=== PATIENT | male | born 1960 | race Caucasian/White ===

== ENCOUNTER → 2017-04-08 | Outpatient (CLI) | payer OTHER ==
[~2017-04-08] MED LIST: ATORVASTATIN CA40 MG PO; COREG6.25 MG PO; CYMBALTA30 MG PO; FISH OIL 1,001000 M2 PO; LANTUS SOL100 UNIT/1 SUBQ; LOSARTAN POTAS100 MG PO; METOLAZONE 2.52.5 M1 PO; PROCRIT 1010000 U/M1 IJ; SLOW RELEASE I142 M1 PO; SODIUM BICARBO650 M3 PO; TORSEMIDE20 MG PO; TUMS PO; VELTASSA8.4 GM PO; VITAMIN D 5050000 I1 PO; VITAMIN E400 UNIT PO
[2017-04-08 13:13] VITALS: BP 108/64; BP 110/60
[2017-04-08 15:36] VITALS: BP 110/60; BP 118/60; BP 148/70
== END ==
LOC: OPONC 10:41
DX: N18.9 Chronic kidney disease, unspecified (principal); D63.1 Anemia in chronic kidney disease
CPT/HCPCS: 91030

== ENCOUNTER → 2017-08-26 | Outpatient (CLI) | payer OTHER ==
[~2017-08-26] MED LIST changes: +ARANESP60 MCG/1 M SUBQ; +ASPIRIN EC81 M1 PO; +FEROSUL220 MG/5 M; +LASIX 80 MG TAB80 MG PO; +TRAZODONE HCL100 MG PO
[2017-08-26 13:54] VITALS: BP 119/48; BP 122/50
[2017-08-26 15:49] VITALS: BP 118/59; BP 119/48; BP 132/57
== END ==
LOC: OPONC 12:08
DX: N18.9 Chronic kidney disease, unspecified (principal); D63.1 Anemia in chronic kidney disease
CPT/HCPCS: 91030

== ENCOUNTER → 2018-05-05 | Outpatient (CLI) | payer OTHER ==
[~2018-05-05] MED LIST changes: +RENVELA800 MG PO
[2018-05-05 12:59] VITALS: BP 106/55; BP 124/58
[2018-05-05 15:01] VITALS: BP 124/58; BP 141/62; BP 149/69
== END ==
LOC: OPONC 10:30
DX: D64.9 Anemia, unspecified (principal)
CPT/HCPCS: 91030

== ENCOUNTER → 2019-03-16 | Outpatient (CLI) | payer OTHER ==
[~2019-03-16] MED LIST changes: +BASAGLAR K100 UNIT/1 SUBQ; +MIRCERA100 MCG/0. SUBQ
[2019-03-16 10:31] VITALS: BP 112/54; BP 113/44
[2019-03-16 13:38] VITALS: BP 112/54; BP 117/53; BP 117/55
--- NOTE | 2019-03-16 15:40 | NUR ---
HERE FOR BLOOD TRANSFUSION, 2 UNITS FOR HGB 7.8, RECENT DROP FROM AROUND 11 PER PT. STATES HAS HAD SOME BLACK STOOLS AND IS BEING CHECKED FOR BLOOD IN STOOL. PT SYMPTOMATIC WITH DIZZINESS, VISION CHANGES, WEAKNESS, FATIGUE. RECEIVED BLOOD ONE YEAR AGO WITH NO UNTOWARD EFFECT. TODAY'S TRANSFUSION TOLERATED WELL, NO S/S REACTION. COLOR MORE PINK. PT DENIES ANY COMPLAINTS. DISMISSED POST TRANSFUSION TO THE DIALYSIS CLINIC THIS AFTERNOON. STABLE CONDITION.
== END ==
LOC: OPONC 07:26
DX: N18.9 Chronic kidney disease, unspecified (principal); D63.1 Anemia in chronic kidney disease
CPT/HCPCS: 91030

== ENCOUNTER → 2020-12-03 | Outpatient (CLI) | payer BC, OTHER ==
[~2020-12-03] MED LIST changes: +ACETAMINOPHEN325 M1 PO; +ALPHA LIPOIC A100 MG PO; +ASA81BEC PO; +BACTRIM DS TAB1 EAC1 PO; +CALCIUM CITRAT250 MG PO; +DESYREL150 MG PO; +FLOMAX0.4 MG PO; +FLONASE 0.05%50 MCG NARES; +GABAPENTIN100 MG PO; +HYDROXYZINE HCL25 M2 PO; +METOPROLOL SUCC25 M1 PO; +MUCINEX600 MG PO; +MYFORTIC180 MG PO; +NOVOLOG100 UNIT/1 SUBQ; +OMEGA-3 FISH1200 MG PO; +OXYCODONE HCL 55 MG PO; +PLAVIX 75 MG TA75 MG PO; +PROTONIX40 M2 PO; +SLOW FE142 MG PO; +TACROLIMUS1 MG PO; +TRESIBA100 UNIT/1 SUBQ; +VITAMIN C500 M2 PO; +VITAMIN D3125 MC3 PO; +XARELTO10 MG PO; +ZOFRAN4 MG PO
== END ==
LOC: HYPER 10:14
PROVIDERS: ATTEND Emergency Medicine
DX: E11.621 Type 2 diabetes mellitus with foot ulcer (principal); L89.623 Pressure ulcer of left heel, stage 3; L97.421 Non-pressure chronic ulcer of left heel and midfoot limited to breakdown of skin; E66.01 Morbid (severe) obesity due to excess calories; E11.40 Type 2 diabetes mellitus with diabetic neuropathy, unspecified; E11.22 Type 2 diabetes mellitus with diabetic chronic kidney disease; I12.0 Hypertensive chronic kidney disease with stage 5 chronic kidney disease or end stage renal disease; N18.6 End stage renal disease; I48.91 Unspecified atrial fibrillation; E78.5 Hyperlipidemia, unspecified; G47.30 Sleep apnea, unspecified; G89.29 Other chronic pain; F41.9 Anxiety disorder, unspecified; Z79.4 Long term (current) use of insulin; Z79.82 Long term (current) use of aspirin; Z68.38 Body mass index [BMI] 38.0-38.9, adult

== ENCOUNTER → 2020-12-03 | Outpatient (CLI) | payer BC, OTHER ==
[~2020-12-03] MED LIST changes: -ACETAMINOPHEN325 M1 PO; -ALPHA LIPOIC A100 MG PO; -ASA81BEC PO; -BACTRIM DS TAB1 EAC1 PO; -CALCIUM CITRAT250 MG PO; -DESYREL150 MG PO; -FLOMAX0.4 MG PO; -FLONASE 0.05%50 MCG NARES; -GABAPENTIN100 MG PO; -HYDROXYZINE HCL25 M2 PO; -METOPROLOL SUCC25 M1 PO; -MUCINEX600 MG PO; -MYFORTIC180 MG PO; -NOVOLOG100 UNIT/1 SUBQ; -OMEGA-3 FISH1200 MG PO; -OXYCODONE HCL 55 MG PO; -PLAVIX 75 MG TA75 MG PO; -PROTONIX40 M2 PO; -SLOW FE142 MG PO; -TACROLIMUS1 MG PO; -TRESIBA100 UNIT/1 SUBQ; -VITAMIN C500 M2 PO; -VITAMIN D3125 MC3 PO; -XARELTO10 MG PO; -ZOFRAN4 MG PO
== END ==
LOC: SJCVCIMAG 11:51
PROVIDERS: ATTEND Emergency Medicine
DX: I70.202 Unspecified atherosclerosis of native arteries of extremities, left leg (principal); M79.662 Pain in left lower leg

== ENCOUNTER → 2020-12-08 | Outpatient (CLI) | payer BC, OTHER ==
[~2020-12-08] VITALS: Ht 182.9 cm; Wt 127.2 kg
[~2020-12-08] MED LIST changes: +ACETAMINOPHEN325 M1 PO; +ALPHA LIPOIC A100 MG PO; +ASA81BEC PO; +BACTRIM DS TAB1 EAC1 PO; +CALCIUM CITRAT250 MG PO; +DESYREL150 MG PO; +FLOMAX0.4 MG PO; +FLONASE 0.05%50 MCG NARES; +GABAPENTIN100 MG PO; +HYDROXYZINE HCL25 M2 PO; +METOPROLOL SUCC25 M1 PO; +MUCINEX600 MG PO; +MYFORTIC180 MG PO; +NOVOLOG100 UNIT/1 SUBQ; +OMEGA-3 FISH1200 MG PO; +OXYCODONE HCL 55 MG PO; +PLAVIX 75 MG TA75 MG PO; +PROTONIX40 M2 PO; +SLOW FE142 MG PO; +TACROLIMUS1 MG PO; +TRESIBA100 UNIT/1 SUBQ; +VITAMIN C500 M2 PO; +VITAMIN D3125 MC3 PO; +XARELTO10 MG PO; +ZOFRAN4 MG PO
[2020-12-08 08:43] VITALS: BP 123/78
[2020-12-08 09:07] LABS: HEMATOCRIT 33.2 % (42.0-52.0); HEMOGLOBIN 10.5 gm/dL (14.0-18.0); MCH 27.3 pg (26.0-34.0); MCHC 31.7 g/dL (28.0-37.0); MCV 86.3 fL (80.0-100.0); RBC 3.84 mil/uL (4.50-6.00); RDW 18.6 % (10.5-14.5); WBC 4.9 thou/uL (4.0-11.0)
[2020-12-08 11:46] LABS: CALCIUM 9.3 mg/dL (8.5-10.1); POTASSIUM 5.8 mmol/L (3.5-5.1)
== END | disposition home or self-care (01) ==
LOC: CATH 07:42
PROVIDERS: ATTEND Nuclear Medicine Nuclear Cardiology
DX: I70.244 Atherosclerosis of native arteries of left leg with ulceration of heel and midfoot (principal); L97.429 Non-pressure chronic ulcer of left heel and midfoot with unspecified severity; I70.1 Atherosclerosis of renal artery; I12.9 Hypertensive chronic kidney disease with stage 1 through stage 4 chronic kidney disease, or unspecified chronic kidney disease; E11.22 Type 2 diabetes mellitus with diabetic chronic kidney disease; N18.9 Chronic kidney disease, unspecified; G47.30 Sleep apnea, unspecified; E66.9 Obesity, unspecified; Z98.890 Other specified postprocedural states; Z79.899 Other long term (current) drug therapy; Z79.4 Long term (current) use of insulin; Z94.0 Kidney transplant status; Z99.2 Dependence on renal dialysis

== ENCOUNTER → 2020-12-11 | Outpatient (CLI) | payer BC, OTHER | LOC: HYPER 09:55 | PROVIDERS: ATTEND Emergency Medicine | DX: E11.621 Type 2 diabetes mellitus with foot ulcer (principal); L89.623 Pressure ulcer of left heel, stage 3; L97.421 Non-pressure chronic ulcer of left heel and midfoot limited to breakdown of skin; E11.40 Type 2 diabetes mellitus with diabetic neuropathy, unspecified; E11.22 Type 2 diabetes mellitus with diabetic chronic kidney disease; N18.6 End stage renal disease; I48.91 Unspecified atrial fibrillation; E78.5 Hyperlipidemia, unspecified; G89.29 Other chronic pain; M54.5 Low back pain; E66.01 Morbid (severe) obesity due to excess calories; G47.30 Sleep apnea, unspecified; F41.9 Anxiety disorder, unspecified; Z68.38 Body mass index [BMI] 38.0-38.9, adult; Z79.4 Long term (current) use of insulin; Z79.82 Long term (current) use of aspirin; Z79.899 Other long term (current) drug therapy ==

== ENCOUNTER → 2020-12-25 | Outpatient (CLI) | payer BC, OTHER | LOC: HYPER 10:41 | PROVIDERS: ATTEND Emergency Medicine | DX: E11.621 Type 2 diabetes mellitus with foot ulcer (principal); L89.623 Pressure ulcer of left heel, stage 3; L97.421 Non-pressure chronic ulcer of left heel and midfoot limited to breakdown of skin; L89.613 Pressure ulcer of right heel, stage 3; L97.411 Non-pressure chronic ulcer of right heel and midfoot limited to breakdown of skin; E11.40 Type 2 diabetes mellitus with diabetic neuropathy, unspecified; E11.22 Type 2 diabetes mellitus with diabetic chronic kidney disease; I12.0 Hypertensive chronic kidney disease with stage 5 chronic kidney disease or end stage renal disease; N18.6 End stage renal disease; I48.91 Unspecified atrial fibrillation; E78.5 Hyperlipidemia, unspecified; G89.29 Other chronic pain; M54.5 Low back pain; E66.01 Morbid (severe) obesity due to excess calories; G47.30 Sleep apnea, unspecified; F41.9 Anxiety disorder, unspecified; Z68.38 Body mass index [BMI] 38.0-38.9, adult ==

== ENCOUNTER → 2020-12-31 | Outpatient (CLI) | payer OTHER, BC ==
[~2020-12-31] VITALS: Ht 182.9 cm; Wt 127.0 kg
[2020-12-31 08:54] LABS: HEMATOCRIT 31.9 % (42.0-52.0); HEMOGLOBIN 10.2 gm/dL (14.0-18.0); MCH 26.8 pg (26.0-34.0); MCHC 31.9 g/dL (28.0-37.0); MCV 84.2 fL (80.0-100.0); RBC 3.78 mil/uL (4.50-6.00); RDW 17.5 % (10.5-14.5); WBC 7.6 thou/uL (4.0-11.0)
[2020-12-31 08:55] VITALS: BP 119/59
[2020-12-31 09:01] LABS: CALCIUM 9.2 mg/dL (8.5-10.1); CREATININE 1.9 mg/dL (0.7-1.3)
[2020-12-31 09:23] LABS: INR 1.07; PROTIME 11.6 Seconds (9.3-11.4)
== END | disposition home or self-care (01) ==
LOC: CATH 07:09
PROVIDERS: ATTEND Nuclear Medicine Nuclear Cardiology
DX: I70.211 Atherosclerosis of native arteries of extremities with intermittent claudication, right leg (principal); I70.238 Atherosclerosis of native arteries of right leg with ulceration of other part of lower leg; M79.604 Pain in right leg; I12.9 Hypertensive chronic kidney disease with stage 1 through stage 4 chronic kidney disease, or unspecified chronic kidney disease; E11.22 Type 2 diabetes mellitus with diabetic chronic kidney disease; N18.4 Chronic kidney disease, stage 4 (severe); D64.9 Anemia, unspecified; I48.91 Unspecified atrial fibrillation; K21.9 Gastro-esophageal reflux disease without esophagitis; Z98.890 Other specified postprocedural states; Z79.899 Other long term (current) drug therapy; Z79.01 Long term (current) use of anticoagulants; Z94.0 Kidney transplant status; Z79.4 Long term (current) use of insulin; Z88.0 Allergy status to penicillin

== ENCOUNTER → 2021-01-07 | Outpatient (CLI) | payer OTHER, BC | LOC: HYPER 14:34 | PROVIDERS: ATTEND Emergency Medicine | DX: E11.621 Type 2 diabetes mellitus with foot ulcer (principal); L89.623 Pressure ulcer of left heel, stage 3; L97.421 Non-pressure chronic ulcer of left heel and midfoot limited to breakdown of skin; L89.613 Pressure ulcer of right heel, stage 3; L97.411 Non-pressure chronic ulcer of right heel and midfoot limited to breakdown of skin; E11.40 Type 2 diabetes mellitus with diabetic neuropathy, unspecified; E11.22 Type 2 diabetes mellitus with diabetic chronic kidney disease; I12.0 Hypertensive chronic kidney disease with stage 5 chronic kidney disease or end stage renal disease; N18.6 End stage renal disease; I48.91 Unspecified atrial fibrillation; E78.5 Hyperlipidemia, unspecified; M54.5 Low back pain; G89.29 Other chronic pain; E66.9 Obesity, unspecified; G47.30 Sleep apnea, unspecified; F41.9 Anxiety disorder, unspecified; Z79.4 Long term (current) use of insulin; Z79.82 Long term (current) use of aspirin; Z79.899 Other long term (current) drug therapy; Z99.2 Dependence on renal dialysis ==

== ENCOUNTER → 2021-01-14 | Outpatient (CLI) | payer OTHER, BC | LOC: HYPER 13:22 | PROVIDERS: ATTEND Emergency Medicine | DX: E11.621 Type 2 diabetes mellitus with foot ulcer (principal); L89.623 Pressure ulcer of left heel, stage 3; L97.421 Non-pressure chronic ulcer of left heel and midfoot limited to breakdown of skin; L89.613 Pressure ulcer of right heel, stage 3; L97.411 Non-pressure chronic ulcer of right heel and midfoot limited to breakdown of skin; E11.40 Type 2 diabetes mellitus with diabetic neuropathy, unspecified; E11.22 Type 2 diabetes mellitus with diabetic chronic kidney disease; I12.0 Hypertensive chronic kidney disease with stage 5 chronic kidney disease or end stage renal disease; N18.6 End stage renal disease; I48.91 Unspecified atrial fibrillation; E78.5 Hyperlipidemia, unspecified; M54.5 Low back pain; G89.29 Other chronic pain; E66.01 Morbid (severe) obesity due to excess calories; G47.30 Sleep apnea, unspecified; F41.9 Anxiety disorder, unspecified; Z79.82 Long term (current) use of aspirin; Z79.899 Other long term (current) drug therapy; Z99.2 Dependence on renal dialysis ==

== ENCOUNTER → 2021-02-04 | Outpatient (CLI) | payer OTHER, BC | LOC: HYPER 10:12 | PROVIDERS: ATTEND Emergency Medicine | DX: E11.621 Type 2 diabetes mellitus with foot ulcer (principal); L89.623 Pressure ulcer of left heel, stage 3; L97.421 Non-pressure chronic ulcer of left heel and midfoot limited to breakdown of skin; L89.613 Pressure ulcer of right heel, stage 3; L97.411 Non-pressure chronic ulcer of right heel and midfoot limited to breakdown of skin; L84 Corns and callosities; E11.40 Type 2 diabetes mellitus with diabetic neuropathy, unspecified; E11.22 Type 2 diabetes mellitus with diabetic chronic kidney disease; I12.0 Hypertensive chronic kidney disease with stage 5 chronic kidney disease or end stage renal disease; N18.6 End stage renal disease; I48.91 Unspecified atrial fibrillation; E78.5 Hyperlipidemia, unspecified; M54.5 Low back pain; G89.29 Other chronic pain; E66.01 Morbid (severe) obesity due to excess calories; G47.30 Sleep apnea, unspecified; F41.9 Anxiety disorder, unspecified; Z79.82 Long term (current) use of aspirin; Z99.2 Dependence on renal dialysis; Z79.4 Long term (current) use of insulin; Z68.38 Body mass index [BMI] 38.0-38.9, adult ==

== ENCOUNTER → 2021-02-18 | Outpatient (CLI) | payer OTHER, BC | LOC: HYPER 16:15 | PROVIDERS: ATTEND Emergency Medicine | DX: E11.621 Type 2 diabetes mellitus with foot ulcer (principal); L89.623 Pressure ulcer of left heel, stage 3; L97.421 Non-pressure chronic ulcer of left heel and midfoot limited to breakdown of skin; L89.613 Pressure ulcer of right heel, stage 3; L97.412 Non-pressure chronic ulcer of right heel and midfoot with fat layer exposed; L84 Corns and callosities; E11.40 Type 2 diabetes mellitus with diabetic neuropathy, unspecified; E11.22 Type 2 diabetes mellitus with diabetic chronic kidney disease; I12.0 Hypertensive chronic kidney disease with stage 5 chronic kidney disease or end stage renal disease; N18.6 End stage renal disease; I48.91 Unspecified atrial fibrillation; E78.5 Hyperlipidemia, unspecified; M54.5 Low back pain; G89.29 Other chronic pain; E66.01 Morbid (severe) obesity due to excess calories; G47.30 Sleep apnea, unspecified; F41.9 Anxiety disorder, unspecified; Z79.82 Long term (current) use of aspirin; Z99.2 Dependence on renal dialysis; Z79.4 Long term (current) use of insulin; Z68.38 Body mass index [BMI] 38.0-38.9, adult ==

== ENCOUNTER → 2021-03-04 | Outpatient (CLI) | payer OTHER, BC ==
[~2021-03-04] MED LIST changes: +TACROLIMUS5 MG PO
== END ==
LOC: HYPER 08:27
PROVIDERS: ATTEND Emergency Medicine
DX: E11.621 Type 2 diabetes mellitus with foot ulcer (principal); L89.623 Pressure ulcer of left heel, stage 3; L97.421 Non-pressure chronic ulcer of left heel and midfoot limited to breakdown of skin; L89.613 Pressure ulcer of right heel, stage 3; L97.412 Non-pressure chronic ulcer of right heel and midfoot with fat layer exposed; L84 Corns and callosities; E11.40 Type 2 diabetes mellitus with diabetic neuropathy, unspecified; E11.22 Type 2 diabetes mellitus with diabetic chronic kidney disease; I12.0 Hypertensive chronic kidney disease with stage 5 chronic kidney disease or end stage renal disease; N18.6 End stage renal disease; I48.91 Unspecified atrial fibrillation; E78.5 Hyperlipidemia, unspecified; M54.5 Low back pain; G89.29 Other chronic pain; E66.01 Morbid (severe) obesity due to excess calories; G47.30 Sleep apnea, unspecified; F41.9 Anxiety disorder, unspecified; Z79.82 Long term (current) use of aspirin; Z99.2 Dependence on renal dialysis; Z79.4 Long term (current) use of insulin; Z68.38 Body mass index [BMI] 38.0-38.9, adult

== ENCOUNTER 2021-03-10 18:28 | Inpatient (IN) | payer OTHER, BC ==
[~2021-03-10] VITALS: Ht 182.9 cm; Wt 122.0 kg
--- NOTE | ~2021-03-10 | O ---
[facility] [place] [address] OPERATIVE REPORT Name: MUSTAPHA FERRER Room #: 442-P ADM IN M.R.#: [id number] Admission: 03/10/21 Attend Phys: Sudhir Maria MD Discharge: Date of : 56 Report #: [id number] THIS REPORT FOR: cc: Jad Stock DPM, David B. DPM Rizzi, Raymond M. DPM ~ DOC #: [id number] Obed Carmen MD DATE OF SERVICE: 03/12/2021 PREOPERATIVE DIAGNOSIS: Right diabetic foot ulcer, Collins grade III approximately 6 cm in diameter. POSTOPERATIVE DIAGNOSIS: Right diabetic foot ulcer, Collins grade III approximately 6 cm in diameter. PROCEDURE: Debridement of right heel excisional with deep fascia and tendon debrided approximately 12 cm x 7 cm, excisional with rongeur. ANESTHESIA: General with a local block consisting of 10 mL of 0.5% Marcaine plain. TOURNIQUET: None. DESCRIPTION OF PROCEDURE: The patient was placed on the operative table in supine position. The right lower extremity was prepped and draped in the usual sterile manner. Attention was directed to the right heel wound, which was posterior medial and somewhat plantar. This area was debrided with a rongeur at first. It was noted that the wound actually tracks more distally then posteriorly and superiorly. The wound tracks distally approximately 6-7 cm to the medial aspect of the foot and distally. I made an incision to lengthen this area up, so I can see this area better. This incision was approximately 4-5 cm in length and I deepened it to follow the tunnel that went in the distal medial aspect of the foot and used a rongeur and scissors to debride out any necrotic tissue. There was increased smell and increased signs of infection site with necrotic tissue present. I took the deep tissue and sent for aerobic, anaerobic, fungal. Wound was flushed out with normal saline, bacitracin mix and all wound margins were also trimmed up nicely to good bleeding tissue. There was no significant bleeding, but there was a lot of oozing of blood. Leakage of bleeding might be adequate for healing, but it will not be a great healing process. At the end, the wound was approximately 12 cm in length and about 6-[address] [address] OPERATIVE REPORT Name: MUSTAPHA FERRER Room #: 442-P [facility] IN .R.#: [id number] Admission: 03/10/21 Attend Phys: Sudhir Maria MD Discharge: Date of : 56 Report #: [id number] diameter and approximately 4-5 cm in depth. It was then dressed with fluffs, Kerlix and Lazaro bandage. The patient tolerated the procedure well and left the operating room with stable vital signs and vascular intact. The patient will follow up with Dr. Watson followup discharge and also Dr. Watson performed in the hospital and plan to get a wound VAC tomorrow. MD PAIGE Rodriguez/HEMANT By: [id number] Obed Carmen DPM /nt
[~2021-03-10 18:28] MED LIST changes: -TACROLIMUS5 MG PO
[2021-03-10 18:40] VITALS: BP 99/54
[2021-03-10 21:52] LABS: ABSOLUTE NEUTROPHILS 7.5 thou/uL (1.4-8.2); BASOPHILS 0.4 % (0.0-2.0); EOSINOPHILS 0.8 % (0.0-3.0); HEMATOCRIT 28.3 % (42.0-52.0); LYMPHOCYTES 6.3 % (24.0-44.0); MCH 26.5 pg (26.0-34.0); MCHC 31.7 g/dL (28.0-37.0); MCV 83.6 fL (80.0-100.0); MONOCYTES 8.7 % (1.0-8.0); PLATELET COUNT 337 thou/uL (150-400); POLYS 83.8 % (36.0-66.0); RBC 3.38 mil/uL (4.50-6.00); RDW 17.3 % (10.5-14.5); WBC 8.9 thou/uL (4.0-11.0)
[2021-03-10 22:01] LABS: ANION GAP 11 mmol/L (7-16); BUN 38 mg/dL (7-18); CALCIUM 8.9 mg/dL (8.5-10.1); CHLORIDE 106 mmol/L (98-107); CO2 22 mmol/L (21-32); CREATININE 1.5 mg/dL (0.7-1.3); GLUCOSE 192 mg/dL (74-106); POTASSIUM 4.6 mmol/L (3.5-5.1); SODIUM 139 mmol/L (136-145)
[2021-03-10 22:07] LABS: ALBUMIN 2.9 g/dL (3.4-5.0); DIRECT BILIRUBIN < 0.1 mg/dL (<0.1-0.2); LIPASE 55 U/L (73-393); SGOT 12 U/L (15-37); SGPT 26 U/L (30-65); TOTAL BILIRUBIN 0.3 mg/dL (0.2-1.0); TOTAL PROTEIN 6.9 g/dL (6.4-8.2)
[2021-03-10 23:05] VITALS: BP 115/46
[2021-03-10 23:34] VITALS: BP 119/46
[2021-03-10 23:51] VITALS: BP 150/63
[2021-03-11] MEDS ORDERED: TACROLIMUS5 MG PO (03:10)
[2021-03-11 05:59] LABS: HEMATOCRIT 27.7 % (42.0-52.0); HEMOGLOBIN 8.9 gm/dL (14.0-18.0); MCH 26.7 pg (26.0-34.0); MCHC 32.3 g/dL (28.0-37.0); MCV 82.6 fL (80.0-100.0); RBC 3.35 mil/uL (4.50-6.00); WBC 6.7 thou/uL (4.0-11.0)
[2021-03-11 06:13] LABS: INR 1.07; PROTIME 11.6 Seconds (10.5-12.1)
[2021-03-11 06:17] LABS: CALCIUM 8.5 mg/dL (8.5-10.1); CREATININE 1.5 mg/dL (0.7-1.3); POTASSIUM 4.4 mmol/L (3.5-5.1)
[2021-03-11 07:48] VITALS: BP 144/67
--- NOTE | 2021-03-11 08:01 | NUR ---
PT WASA ADMITTED TO THE UNIT FROM THE ER IN A STABLE CONDITION.PT DENIED PAIN ON ADMISSION.PT HAD KIDNEY TRANSPLANT IN MAY 2020,ON ANTI REJECTION MED.PT BROUGHT HIS FROM HOME,SENT DOWN TO PHARMACY.JEANNETTE HEEL WOUND DRSG COMPLETED.L WITH ESCHAR AND R SIDE WITH DRAINAGE.PT ON IVF AND IV ABX.REPORT TO AM NURSE.
--- NOTE | 2021-03-11 11:46 | NUR ---
Assumed care of pt at 0700. Pt a&ox4. Wound care consulted. Wound pictures in the chart. IVF infusing. SBA with gait-belt and walker. Call light within reach. Fall precautions in place. Will continue to monitor.
--- NOTE | 2021-03-11 13:02 | NUR ---
Assess due to pt with bilateral foot wounds, questionable osteomyelitis. Hx DM, ESRD with renal transplant, EDEN, charcot foot. BG controlled. Wt down about 11 lb since November, 4% not significant. States BG are controlled at home, last A1C under 7 per pt report. Usually drinks 1 premier protein per day and would like to have Ensure Max. Has order for NPO since breakfast and unsure why he cannot eat. Alerted RN who is to call physician for confirmation. Low nutrition risk
--- NOTE | 2021-03-11 14:33 | NUR ---
Visited the pt this am, CM role introduced. Alert and oriented x 4, had complete COVID vaccination. Admitted for bilateral foot wounds, and is a diabetic. Pt had a fall on Oct 2019 and had broken a femur (right side ORIF), he currently does out patient rehab in 2x a week. Pt currently uses a cane and a walker, has grab handle in all the bathrooms and along the stairs in the home.Has 3 steps in the garage and 2 steps to enter the home, both areas have banisters that were built. Pt has an electric wheel chair at present. 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 who is an RN, helps the pt with his wound care daily. Pt mentioned he prefers to sleep downstairs on his recliner vs going up the steps to the bedroom, pt is still not confident he can use the stairs at this point and would like to be more steady through PT prior to attempting. His current PCP is Dr. Anderson, ID and wound care on his case for this admission. Discharge planning and case management folling this case
[2021-03-11 15:23] VITALS: BP 144/61
[2021-03-11 19:35] VITALS: BP 154/66
[2021-03-12 04:34] VITALS: BP 164/64
[2021-03-12 07:40] VITALS: BP 151/76
--- NOTE | 2021-03-12 08:19 | NUR ---
DRSG CHANGE TO PT'S JEANNETTE HEEL COMPLETED.PT ARLENE WELL. PT DENIED PAIN SO FAR.UP WITH ASSITS/WALKER TO THE TOILET.PT CONT ON IVF AND IV ABX.PT ABLE TO MAKE HIS NEEDS KNOWN.PT PUT ON NPO STATUS THIS AM FOR POSSIBLE SX LATER IN THE DAY.REPORT TO AM NURSE.
--- NOTE | 2021-03-12 15:25 | NUR ---
ASSUMED PT CARE THIS AM. PT IS ALERT & ORIENTED X4. PT HAS IV SITE ON R AC. PT IS UP WITH ASSIST X1 AND USES WALKER. PT HAS BEEN NPO FOR I&D TODAY. PT IS ACCHUCHEFELICIANO FARIAS. PT DENIES PAIN, NAUSEA AND VOMITING DURING THE SHIFT. PT HAS WOUND ON L AND R HEEL. PT IS ON ROOM AIR. PT AT THE BEDSIDE. PT IS CURRENTLY HAVING I&D.
[2021-03-12 17:52] VITALS: BP 163/72
[2021-03-12 20:08] VITALS: BP 132/71
[2021-03-12 21:53] VITALS: BP 132/71
[2021-03-13 00:12] VITALS: BP 130/66
--- NOTE | 2021-03-13 00:49 | NUR ---
UPON SHIFT ASSESSMENT, PT AOX4 WITH INTERMITTENT FORGETFULNESS. PT ALSO IRRITABLE AND AGITATED REPORTING CONCERN WITH CORRECT MEDICATION RECONCILATION AND ADMINISTRATION IN ADDITION TO INSULIN COVERAGE. ATTEMPTED TO RECONCILE MEDICATIONS WITH PT, PT NOTED TO BECOME INCREASINGLY AGITATED AND VERBALLY AGGRESSIVE. ASBESTOS MICROSCOPIST AND ONCALL SURVEY STATISTICIAN NOTIFIED. PT NOTED TO DEESCALATE AFTERWARDS. PT REPORTS 2/10 PAIN IN LEFT FOOT. DRESSINGS TO BLE CLEAN, DRY AND INTACT. PT RECEIVING PRN PO APAP Q4HR. PT DENIES SOB WHILE ON ROOM AIR, CPAP WORN AT HS. PT TOLERATING PO INTAKE OF FLUIDS AND CARB CONTROLLED DIET WITHOUT ISSUE. PT WITHOUT NAUSEA OR EMESIS. PT RESTING IN BED THROUGHOUT SHIFT, FREQUENT REPOSITIONING ENCOURAGED, PT NOTED TO SHIFT INDEPENDENTLY. PT ENCOURAGED TO NOTIFY STAFF FOR ALL NEEDS, CALL LIGHT WITHIN REACH, BED ALARM ON, BED LOCKED IN LOWEST POSITION, FREQUENT MONITORING WILL CONTINUE.
[2021-03-13 04:57] LABS: HEMATOCRIT 29.8 % (42.0-52.0); HEMOGLOBIN 9.7 gm/dL (14.0-18.0)
[2021-03-13 07:30] VITALS: BP 125/54
[2021-03-13 12:17] VITALS: BP 125/54
--- NOTE | 2021-03-13 15:12 | NUR ---
Possible weekend dc with services discussed with the pt. He has had [facility] in the recent past and would like to use them again. Dc habitat conservation planner to fax the referral to intake. The HH liason confirmed they can accept if dc'd this weekend. The pt was suppose to have wound vac put on today to lt heel;however it was posponed due to bleeding. Should he be stable to dc over the weekend, he can have the wound vac placed on Tuesday during his appt at the wound clinic with Dr. Cordero (per wound care team). If he is here on Tuesday they will place it here and cancel his clinic appt. The pt does anticipate being home bound for the next few weeks and will take leave from work. He has all needed dme in place at home. [facility] will need to be contacted and faxed his dc summary and instructions if dc'd this weekend.
[2021-03-13 15:25] VITALS: BP 119/56
--- NOTE | 2021-03-13 16:24 | NUR ---
FAXED REFERRAL TO [facility]. CONFIRMED WITH INTAKE THAT THEY RECEIVED AND LEFT MESSAGE WITH MELISSA/JAVID THAT PATIENT WILL DISCHARGE THIS WEEKEND. [facility] P [phone]; FAX [phone]
--- NOTE | 2021-03-13 16:35 | NUR ---
FAXED REFERRAL TO [facility]. CONFIRMED WITH MADIHA/ADELA THAT THEY RECEIVED AND THAT PATIENT WILL BE DISCHARGED THIS WEEKEND. THEY WOULD LIKE TO BE CALLED WHEN PATIENT DISCHARGES AND DISCHARGE ORDERS AND SUMMARY FAXED. [facility] P [phone]; FAX [phone]
--- NOTE | 2021-03-13 18:30 | NUR ---
PT ASSESSED AT START OF SHIFT. PT SEEN BY DR. BRITT'S NURSE EFRAIN THIS AM TO INFORM PT HE HAD RT GROIN PSEUDOANEURYSM THAT WAS STABLE AND WOULD BE TAKEN CARE OF EITHER TUESDAY OR OUT. PT ELECTED TO HAVE DR. ROMERO INJECT AREA THIS AFTERNOON TO TAKE LESS TIME AWAY FROM WORK. RT GROIN SITE DRY AND SOFT TO PALPATION. AFTER WALKING TO THE BATHROOM PT PUT HEEL DOWN AND IT STARTED BLEEDING. PRESSURE BANDAGE REINFORCED AND WOUND RN CALLED. SHE WAS ABLE TO STOP BLEEDING AT BEDSIDE AND DID COMPLETE DRESSING CHANGE. SURGIFOAM LEFT AT BEDSIDE IN CASE OF FURTHER BLEEDING. NONE NOTED. PT HOPING TO DC IN AM.
[2021-03-13 19:15] VITALS: BP 124/60
[2021-03-14 04:20] VITALS: BP 105/51
--- NOTE | 2021-03-14 04:37 | NUR ---
ASSUMED PT CARE AT 1900.PT DENIED PAIN SO FAR.DRSG TO HIS R HEEL C/D/I. BETADINE TO HIS L HEEL.PT CONT TO BE TOE TOUCH WT BEARING.IVF AND IV ABX GIVEN ORDERED.JEANNETTE HEEL ELEVATED WITH A PILLOW WHILE PT IS IN BED.PT ABLE TO MAKE HIS NEEDS KNOWN.POSSIBLE DC TODAY.CALL LIGHT WITHIN REACH.
[2021-03-14 07:50] VITALS: BP 121/50
[2021-03-14 15:10] VITALS: BP 127/56
--- NOTE | 2021-03-14 19:46 | NUR ---
ASSUMED PT CARE AROUND 0710. PT ALERT X OTIENTED X 4. ON ROOM AIR. STAND BY ASST TO BEDSIDE COMMODE. ACCDINORA ANGULO. SLEEP APNEA, USES CPAP AT NIGHT.IV RT AC. LEFT HEEL WOUND DRESSING CHANGED. HAD 3 LOOSE BM TODAY. HAS HOME MEDS AT PT BIN. PT SAID, HE WAS TAKING TACROLIMUS (HOMEMEDS) 7 PILLS AT A TIME, IN THE EMAR IT SHOWED [address] ALLAN AND PHARMACY NOTIFIED ABOUT PT'S MEDICINE CONCERN. AT BEDSIDE DURING DAYTIME. WILL CALL FOR HELP, CALL LIGHT IN REACH. FALL PRECT IN PLACE. SHIFT REPORT GIVEN TO SUPERVISOR PHOSPHATIC FERTILIZER.
[2021-03-14 20:40] VITALS: BP 122/52
[2021-03-15 03:30] VITALS: BP 145/67
[2021-03-15 07:10] VITALS: BP 137/61
--- NOTE | 2021-03-15 08:22 | NUR ---
PT LYING IN BED. DENIES PAIN. VOIDING PER URINAL. RESTING COMFORTABLY. NO NEEDS VOICED. CALL LIGHT WITHIN REACH. FREQUENT OBSERVATION.
[2021-03-15 15:35] VITALS: BP 124/54
[2021-03-15 19:17] VITALS: BP 125/67
--- NOTE | 2021-03-15 19:47 | NUR ---
Assumed care of pt at 0700. Pt a&ox4. Denies pain. Dressings changed. IVF and IV antibiotics infusing. Wound vac to be placed tomorrow 03/16. Pt possible d/c tomorrow. Call light within reach. Fall precautions in place. Will continue to monitor.
[2021-03-16 04:09] VITALS: BP 149/82
--- NOTE | 2021-03-16 04:51 | NUR ---
PT WAS OBSERVED SITTING UP IN THE RECLINER IN HIS ROOM ON HIS COMPUTER AT SHIFT CHANGE.PT DENIED PAIN SO FAR.PT REF DRSG CHANGE AT HS.PT HAD AN EPISODE OF INCONTINECE WHILE WALKING TO THE TOILET(LOOSE STOOL).PT PROGRESSING TOWARDS DC GOALS.PT LOOKING FORWARD TO BE DC'D LATER TODAY AFTER WOUND VAC PLACEMENT.CALL LIGHT WITHIN REACH.
[2021-03-16 07:50] VITALS: BP 153/69
[2021-03-16 11:16] LABS: ABSOLUTE NEUTROPHILS 3.9 thou/uL (1.4-8.2); BASOPHILS 0.4 % (0.0-2.0); EOSINOPHILS 3.8 % (0.0-3.0); HEMATOCRIT 28.3 % (42.0-52.0); LYMPHOCYTES 8.2 % (24.0-44.0); MCH 26.5 pg (26.0-34.0); MCHC 31.8 g/dL (28.0-37.0); MCV 83.2 fL (80.0-100.0); MONOCYTES 8.8 % (1.0-8.0); PLATELET COUNT 289 thou/uL (150-400); POLYS 78.8 % (36.0-66.0); RDW 16.8 % (10.5-14.5)
[2021-03-16 11:35] LABS: ALBUMIN 2.7 g/dL (3.4-5.0); CALCIUM 8.5 mg/dL (8.5-10.1); CREATININE 1.4 mg/dL (0.7-1.3); MAGNESIUM 1.4 mg/dL (1.8-2.4); POTASSIUM 4.2 mmol/L (3.5-5.1); TOTAL BILIRUBIN 0.3 mg/dL (0.2-1.0); TOTAL PROTEIN 6.4 g/dL (6.4-8.2)
--- NOTE | 2021-03-16 12:20 | EKG ---
[address] [address] ELECTROCARDIOGRAM REPORT Name: MUSTAPHA FERRER Room #: 442-[facility] IN ..#: [id number] Admission: 03/10/21 Attend Phys: Sudhir Maria MD Discharge: Date of : 56 Report #: [id number] [facility] Test Date: 2021-03-16 Test Time: 08:50:02 Pat Name: MUSTAPHA FERRER Department: Room: 442 Gender: M Qa Developer: KAT : 1960 Requested By: Natalie Golden Order Number: [id number] MD: Magan John Measurements Intervals [place] Rate: 63 P: 28 ME: 139 QRS: 14 QRSD: 91 T: 36 QT: 392 QTc: 402 Interpretive Statements Sinus rhythm Supraventricular bigeminy Baseline wander in lead(s) V1 No previous ECG available for comparison Electronically Signed On 03-16-2021 12:20:05 CDT by Magan John [email or web address] <ELECTRONICALLY SIGNED> By: Magan John MD, [facility] 03/16/21 1220 0850 0850 Magan John MD, [facility] /EPI
--- NOTE | 2021-03-16 14:24 | NUR ---
ASSUMED PT CARE THIS AM. PT A&OX4, ABLE TO MAKE NEEDS KNOWN. IV PATENT, FLUIDS INFUSING. PATIENT HAS NO COMPLAINTS OF PAIN. PATIENT REMAINS CONTINENT, AMBULATORY WITH ASSIST TO THE BEDSIDE COMMMODE. PATIENT TOOK MORNING MEDICAITONS WITHOUT ISSUE. FALL PRECAUTIONS ARE IN PLACE, CALL LIGHT WITHIN REACH.
[2021-03-16 16:00] VITALS: BP 136/65
--- NOTE | 2021-03-16 16:52 | NUR ---
HOSPITALIST AND ID INDICATED THAT THEY WERE AWAITING WC TO SEE PT TO DETERMINE DC TIMELINE AND NEEDS. PT AND SPOUSE INDICATING DESIRE TO DC HOME [facility] WITH OR WITHOUT WOUND VAC. VAC CAN BE ADMINISTERED OP IN WOUND CARE CLINIC. [place] P: F: .
--- NOTE | 2021-03-16 17:54 | NUR ---
VAT CONSULTED FOR A PICC FOR THIS ESRD PT WHO HAD A KIDNEY TRANSPLANT BUT IS AT RISK FOR FAILURE AND NEED FOR VESSEL PRESERVATION. ORDER PLACED FOR IR TO PLACE A TUNNELED LINE TO ACHIEVE THIS
--- NOTE | 2021-03-16 18:02 | NUR ---
ASSUMED PT CARE UPON TRANSFER TO UNIT AROUND 1640. PATIENT IS A&OX4, ABLE TO MAKE ALL NEEDS KNOWN. PATIENT IS ON 2 LITERS OF OXYGEN VIA NC. CAPNOGRAPHY MONITOR ON PATIENT . RETORT FORKER PUMP INFUSING MORPHINE ORDERED, VERIFIED BY A SECOND RN. PATIENT WITH A RONAL DRAIN TO BACK. FOX CATHETER IN PLACE, DRAINING WELL. BLOOD SUGAR BEING MONITORED. PATIENT ABLE TO MOVE ALL EXTREMETIES. FALL PRECAUTIONS ARE IN PLACE, CALL LIGHT WITHIN REACH.
[2021-03-16 19:28] VITALS: BP 132/55
[2021-03-17 00:06] LABS: GLYCOHEMOGLOBIN (HGB A1C) 6.7 % (4.8-5.6)
--- NOTE | 2021-03-17 02:25 | NUR ---
ASSUMED PT CARE AT 0700. PT WAS SITTING IN THE CHAIR WITH CHAIR ALARM ON. INTRODUCED SELF TO PT, PT WAS INTERACTIVE AND DID NOT EXPRESS ANY CONCERNS, NO VISIBLE SIGN OF DISTRESS WAS NOTED. PT DID NOT HAVE A BOWEL MOVEMENT ON MY SHIFT.PT IS SLEEPING WITH CPAP AND IS ON CPOX.
[2021-03-17 08:00] VITALS: BP 148/66
--- NOTE | 2021-03-17 08:51 | NUR ---
Followup: treatment continues for bilateral foot wounds. A1C 6.7-excellent BG control. Eating 60% meals plus 1 ensure max/day. Low nutrition risk
--- NOTE | 2021-03-17 10:49 | NUR ---
Assumed care of pt at 0700. Pt a&ox4. Denies pain. Dressings c/d/i. PICC line to be inserted today. IV anticiotics infusing. Possible d/c to home today. Call light within reach. Fall precautions in place. Will continue to monitor.
[2021-03-17 15:00] VITALS: BP 125/54
--- NOTE | 2021-03-17 16:09 | NUR ---
ON-GOING ASSESSMENT: CM REVIEWED CHART AND SPOKE WITH ATTENDING WELL WOUND CARE AND WOUND CARE PHYSICIAN. PT IS NEEDING HOME IV ANBX ARRANGED AND IS ON ZOSYN Q8. CM SPOKE WITH PATIENT AND HIS WHO IS A NURSE AND THEY FEEL COMFORTABLE GOING HOME WITH IV ANBX AND HAVE NO PREFERENCE OF DME COMPANY. CM SENT REFERRAL TO [facility] AND SPOKE WITH HARLEY MARTINEZ LIASON. SHE RAN BENEFITS AND ALSO DISCUSSED WITH PT AND HIS . WORSE CASE SCENARIO PT WILL OWE ZOSYN 31.68/DAY, SUPPLIES 93/DAY, TOTAL 872.76/WEEK. HE IS ABOUT 3024 AWAY FROM MEETING OOP MAX WHICH THEN WILL BE COVERED AT 100 PERCENT AND WILL MOST LIKELY HIT THAT WITH HOSPITAL STAY. PT AND ARE AGREEABLE. HARLEY MILESSON AT [facility] SENT PT AND A VIDEO AND THEY FEEL COMFORTABLE AND DO NOT FEEL THEY NEED A BEDSIDE TEACHING. AND PT PREFER TO USE [employer] , CM SPOKE WITH AJAY AT [facility] AND CONFIRMED THEY CAN ACCEPT PATIENT ON IV ANBX AND CAN PUT ON PATIENTS WOUND VAC TOMORROW (SHE VERIFIED WITH THEIR DIRECTOR). CM NOTIFIED ATTENDING AND PT IS WANTING TO GO HOME TODAY. SENIOR MAINTENANCE MACHINIST AWARE. WOUND VAC WAS DELIVERED TO PATIENT AROUND 1600 TO TAKE HOME WITH HIM AND SUPPLIES. [facility] REPORTS THEY WILL HAVE NIGHTIME DOSE OF ANBX DELIVERED TO PATIENT THIS EVENING AND HAVE THE CONTACT NUMBER FOR AND PT. DISCHARGE ORDERS WERE FAXED TO [facility] AND CONFIRMED THEY RECEIVED THEM. PT REPORTS NO FURTHER NEEDS FROM AT THIS TIME. BEDSIDE RN AWARE. CASE CLOSED.
[2021-03-17 16:11] VITALS: BP 125/54
--- NOTE | 2021-03-17 17:09 | HC ---
[facility] [place] [address] CONSULTATION Name: MUSTAPHA FERRER Room #: 442-P [facility] IN M.R.#: [id number] Admission: 03/10/21 Attend Phys: Sudhir Maria MD Discharge: 03/17/21 Date of : 56 Report #: [id number] THIS REPORT FOR: cc: Jad Stock DPM, David B. DPM Althoff, Jeffrey R. MD ~ DOC #: [id number] Scar Scalnon MD DATE OF SERVICE: 03/11/2021 CHIEF COMPLAINT: Bilateral heel ulcers. HISTORY OF PRESENT ILLNESS: This is a 60-year-old male patient with a history of diabetes mellitus. He has had a chronic ulceration to his plantar left heel and has developed a blister and then subsequent breakdown of his right heel. He is admitted to the hospital due to increasing pain, swelling and drainage and possible concern for underlying osteomyelitis. The patient denies any pain as he has significant peripheral neuropathy. He currently denies fever and chills. PAST MEDICAL HISTORY: Positive for type 2 diabetes mellitus, peripheral vascular disease, chronic kidney disease, hypertension, atrial fibrillation, generalized debility and mild protein-calorie malnutrition. MEDICATIONS: Include vancomycin, duloxetine, metoprolol, tacrolimus, tamsulosin, ferrous sulfate, pantoprazole, trazodone, vancomycin. ALLERGIES: No known drug allergies. SOCIAL HISTORY: Negative for current alcohol or tobacco use. FAMILY HISTORY: Noncontributory. REVIEW OF SYSTEMS: CONSTITUTIONAL: The patient denies fever, chills or weight loss. NEUROLOGICAL: The patient does have peripheral neuropathy. Denies focal weakness or tingling. EYES: The patient denies visual changes, redness, or drainage. ENT: The patient denies earache, nasal drainage, sore throat. CARDIOVASCULAR: The patient denies chest pain, palpitations, or diaphoresis. PULMONARY: No cough, shortness of breath. GASTROINTESTINAL: The patient denies nausea, vomiting, diarrhea or abdominal pain, ORTHOPEDIC: The patient has ulcerations to both heels as described above. Others systems in a 14-point review of systems are negative. PHYSICAL EXAMINATION: [facility] [address] [place] [address] CONSULTATION Name: MUSTAPHA FERRER Room #: 442-P [facility]#: [id number] Admission: 03/10/21 Attend Phys: Sudhir Maria MD Discharge: 03/17/21 Date of : 56 Report #: [id number] VITAL SIGNS: Include temperature 36.7, pulse 71, respiration of 20, blood pressure 144/67. GENERAL: This is a well-built male patient who appears to be in minimal distress. HEAD: Normocephalic. Nose and throat are clear. NECK: Supple. HEART: Regular rhythm. ABDOMEN: Soft, bowel sounds present. EXTREMITIES: Examination of the lower extremities demonstrate diminished distal pulses. He has moderate edema. There is a plantar ulcer on the left heel that is dry, stable. Eschar does not appear to be infected. On the right side the posterolateral heel is ulcerated. There is a moderate amount of fibrin and a shaggy subcutaneous material seen. There is no granulation tissue. There is surrounding erythema and warmth and moderate drainage with some odor. NEUROLOGIC: The patient is alert and oriented and appropriate. He has diminished light touch sensation on the lower extremities. LABORATORY DATA: Sodium 139, potassium 4.4, chloride 105, CO2 of 23, BUN 33, creatinine is 1.5. White blood cell count of 6.7 with a hemoglobin of 8.9. CLINICAL IMPRESSION: 1. Diabetic foot ulcerations, bilateral heels. 2. Pressure ulceration to the right posterior heel. 3. Peripheral vascular disease status post percutaneous revascularization in November. 4. Chronic kidney disease. 5. Hypertension. 6. Type 2 diabetes mellitus with peripheral neuropathy. 7. History of atrial fibrillation. RECOMMENDATION: At this point in time, we will recommend topical quarter strength Dakin's moist gauze b.i.d. and p.r.n. We will recommend Betadine to the dry eschar on the left side. We will recheck Dopplers to make sure that his stents remain open and we will consult Dr. Carmen for possible surgical debridement of the right heel. He will need aggressive intravenous antibiotic therapy. I appreciate being asked to see him in consultation. [place] [address] [address] CONSULTATION Name: NABILMUSTAPHA Ruiz Room #: 442-P [facility] IN M.R.#: [id number] Admission: 03/10/21 Attend Phys: Sudhir Maria MD Discharge: 03/17/21 Date of : 56 Report #: [id number] <ELECTRONICALLY SIGNED> By: Scar Scanlon MD 03/17/21 1709 35 Scar Scanlon MD /
== END 2021-03-17 16:54 | disposition home health service (06) | DRG 623 ==
LOC: ER 18:28 → EROBS 22:42 → 4S 22:42
PROVIDERS: Internal Medicine; Nurse Practitioner; Nurse Practitioner Family; Podiatrist Foot & Ankle Surgery; ADMIT Internal Medicine; ATTEND Internal Medicine
PROC: 5A09557 Assistance with Respiratory Ventilation, Greater than 96 Consecutive Hours, Continuous Positive Airway Pressure (ICD-10-PCS; 2021-03-11)
PROC: 0JBQ0ZZ Excision of Right Foot Subcutaneous Tissue and Fascia, Open Approach (ICD-10-PCS; principal; 2021-03-12)
PROC: 3E03317 Introduction of Other Thrombolytic into Peripheral Vein, Percutaneous Approach (ICD-10-PCS; 2021-03-13)
PROC: 0JH63XZ Insertion of Tunneled Vascular Access Device into Chest Subcutaneous Tissue and Fascia, Percutaneous Approach (ICD-10-PCS; 2021-03-17)
PROC: B548ZZA Ultrasonography of Superior Vena Cava, Guidance (ICD-10-PCS; 2021-03-17)
PROC: 02HV33Z Insertion of Infusion Device into Superior Vena Cava, Percutaneous Approach (ICD-10-PCS; 2021-03-17)
PROC: B5181ZA Fluoroscopy of Superior Vena Cava using Low Osmolar Contrast, Guidance (ICD-10-PCS; 2021-03-17)
DX: E11.621 Type 2 diabetes mellitus with foot ulcer (principal); A52.16 Charcot's arthropathy (tabetic); E44.0 Moderate protein-calorie malnutrition; Z94.0 Kidney transplant status; I48.20 Chronic atrial fibrillation, unspecified; I12.0 Hypertensive chronic kidney disease with stage 5 chronic kidney disease or end stage renal disease; E11.610 Type 2 diabetes mellitus with diabetic neuropathic arthropathy; N18.6 End stage renal disease; L89.620 Pressure ulcer of left heel, unstageable; L89.610 Pressure ulcer of right heel, unstageable; E11.22 Type 2 diabetes mellitus with diabetic chronic kidney disease; S91.301A Unspecified open wound, right foot, initial encounter; E11.51 Type 2 diabetes mellitus with diabetic peripheral angiopathy without gangrene; E11.42 Type 2 diabetes mellitus with diabetic polyneuropathy; G47.33 Obstructive sleep apnea (adult) (pediatric); D64.9 Anemia, unspecified; R53.81 Other malaise; I72.9 Aneurysm of unspecified site; E66.9 Obesity, unspecified; Z68.38 Body mass index [BMI] 38.0-38.9, adult; Z68.36 Body mass index [BMI] 36.0-36.9, adult; Z98.41 Cataract extraction status, right eye; Z79.4 Long term (current) use of insulin; X58.XXXA Exposure to other specified factors, initial encounter; Y93.89 Activity, other specified; Y92.89 Other specified places as the place of occurrence of the external cause; Y99.8 Other external cause status
CPT/HCPCS: 10195; 50010; 50101; 50386; 50951; 57091; 57179; 62110; 62900; 70005

== ENCOUNTER → 2021-03-25 | Outpatient (CLI) | payer OTHER, BC ==
[~2021-03-25] MED LIST changes: +TACROLIMUS5 MG PO
== END ==
LOC: HYPER 08:32
PROVIDERS: ATTEND Emergency Medicine
DX: E11.621 Type 2 diabetes mellitus with foot ulcer (principal); L89.613 Pressure ulcer of right heel, stage 3; L97.411 Non-pressure chronic ulcer of right heel and midfoot limited to breakdown of skin; L89.620 Pressure ulcer of left heel, unstageable; L97.421 Non-pressure chronic ulcer of left heel and midfoot limited to breakdown of skin; E11.40 Type 2 diabetes mellitus with diabetic neuropathy, unspecified; I48.91 Unspecified atrial fibrillation; E11.22 Type 2 diabetes mellitus with diabetic chronic kidney disease; I12.0 Hypertensive chronic kidney disease with stage 5 chronic kidney disease or end stage renal disease; N18.6 End stage renal disease; E78.5 Hyperlipidemia, unspecified; G89.29 Other chronic pain; M54.5 Low back pain; G47.30 Sleep apnea, unspecified; E66.9 Obesity, unspecified; F41.9 Anxiety disorder, unspecified; Z68.38 Body mass index [BMI] 38.0-38.9, adult; Z79.4 Long term (current) use of insulin; Z79.82 Long term (current) use of aspirin; Z79.899 Other long term (current) drug therapy

== ENCOUNTER → 2021-04-09 | Outpatient (CLI) | payer OTHER, BC | LOC: SJCVCIMAG 06:25 | PROVIDERS: ATTEND Nuclear Medicine Nuclear Cardiology | DX: I70.203 Unspecified atherosclerosis of native arteries of extremities, bilateral legs (principal); I65.23 Occlusion and stenosis of bilateral carotid arteries; E11.51 Type 2 diabetes mellitus with diabetic peripheral angiopathy without gangrene; I48.91 Unspecified atrial fibrillation; I10 Essential (primary) hypertension; E11.622 Type 2 diabetes mellitus with other skin ulcer; L97.909 Non-pressure chronic ulcer of unspecified part of unspecified lower leg with unspecified severity; Z94.0 Kidney transplant status; Z79.899 Other long term (current) drug therapy; Z79.82 Long term (current) use of aspirin; Z79.4 Long term (current) use of insulin ==

== ENCOUNTER → 2021-04-09 | Outpatient (CLI) | payer OTHER, BC | LOC: HYPER 08:57 | PROVIDERS: ATTEND Emergency Medicine | DX: E11.621 Type 2 diabetes mellitus with foot ulcer (principal); L89.613 Pressure ulcer of right heel, stage 3; L97.411 Non-pressure chronic ulcer of right heel and midfoot limited to breakdown of skin; L89.623 Pressure ulcer of left heel, stage 3; L97.421 Non-pressure chronic ulcer of left heel and midfoot limited to breakdown of skin; E11.40 Type 2 diabetes mellitus with diabetic neuropathy, unspecified; I48.91 Unspecified atrial fibrillation; E11.22 Type 2 diabetes mellitus with diabetic chronic kidney disease; I12.0 Hypertensive chronic kidney disease with stage 5 chronic kidney disease or end stage renal disease; N18.6 End stage renal disease; E78.5 Hyperlipidemia, unspecified; G89.29 Other chronic pain; M54.5 Low back pain; G47.30 Sleep apnea, unspecified; E66.01 Morbid (severe) obesity due to excess calories; F41.9 Anxiety disorder, unspecified; Z68.38 Body mass index [BMI] 38.0-38.9, adult; Z79.4 Long term (current) use of insulin; Z79.82 Long term (current) use of aspirin ==

== ENCOUNTER → 2021-04-16 | Outpatient (CLI) | payer OTHER, BC ==
[~2021-04-16] VITALS: Ht 182.9 cm; Wt 122.0 kg
[~2021-04-16] MED LIST changes: +ALLOPURINOL 10100 M3 PO; +FLOVENT DISKUS50 MCG INH; +LIPITOR 20 MG T20 M1 PO; +TOPROL XL25 MG PO
[2021-04-16 07:17] VITALS: BP 130/86
[2021-04-16 07:37] LABS: HEMATOCRIT 32.1 % (42.0-52.0); HEMOGLOBIN 10.4 gm/dL (14.0-18.0); MCH 28.2 pg (26.0-34.0); MCHC 32.3 g/dL (28.0-37.0); MCV 87.3 fL (80.0-100.0); RBC 3.68 mil/uL (4.50-6.00); RDW 18.7 % (10.5-14.5); WBC 4.5 thou/uL (4.0-11.0)
[2021-04-16 07:46] LABS: CREATININE 1.9 mg/dL (0.7-1.3)
== END | disposition home or self-care (01) ==
LOC: CATH 06:50
PROVIDERS: ATTEND Nuclear Medicine Nuclear Cardiology
DX: E11.51 Type 2 diabetes mellitus with diabetic peripheral angiopathy without gangrene (principal); I70.248 Atherosclerosis of native arteries of left leg with ulceration of other part of lower leg; L97.929 Non-pressure chronic ulcer of unspecified part of left lower leg with unspecified severity; I70.1 Atherosclerosis of renal artery; I12.9 Hypertensive chronic kidney disease with stage 1 through stage 4 chronic kidney disease, or unspecified chronic kidney disease; E11.22 Type 2 diabetes mellitus with diabetic chronic kidney disease; N18.4 Chronic kidney disease, stage 4 (severe); D64.9 Anemia, unspecified; I48.91 Unspecified atrial fibrillation; E66.9 Obesity, unspecified; Z98.890 Other specified postprocedural states; Z79.899 Other long term (current) drug therapy; Z79.01 Long term (current) use of anticoagulants; Z94.0 Kidney transplant status

== ENCOUNTER → 2021-04-22 | Outpatient (CLI) | payer OTHER, BC ==
[~2021-04-22] VITALS: Ht 182.9 cm; Wt 122.0 kg
[2021-04-22 09:59] VITALS: BP 134/54
== END | disposition home or self-care (01) ==
LOC: CATH 09:20
PROVIDERS: ATTEND Nuclear Medicine Nuclear Cardiology
DX: E11.51 Type 2 diabetes mellitus with diabetic peripheral angiopathy without gangrene (principal); I70.238 Atherosclerosis of native arteries of right leg with ulceration of other part of lower leg; L97.919 Non-pressure chronic ulcer of unspecified part of right lower leg with unspecified severity; I12.9 Hypertensive chronic kidney disease with stage 1 through stage 4 chronic kidney disease, or unspecified chronic kidney disease; E11.22 Type 2 diabetes mellitus with diabetic chronic kidney disease; N18.4 Chronic kidney disease, stage 4 (severe); I25.10 Atherosclerotic heart disease of native coronary artery without angina pectoris; I48.91 Unspecified atrial fibrillation; D64.9 Anemia, unspecified; G47.30 Sleep apnea, unspecified; E66.9 Obesity, unspecified; Z98.890 Other specified postprocedural states; Z79.899 Other long term (current) drug therapy; Z79.01 Long term (current) use of anticoagulants; Z79.4 Long term (current) use of insulin

== ENCOUNTER → 2021-04-29 | Outpatient (CLI) | payer OTHER, BC | LOC: HYPER 08:03 | PROVIDERS: ATTEND Emergency Medicine | DX: E11.621 Type 2 diabetes mellitus with foot ulcer (principal); L89.614 Pressure ulcer of right heel, stage 4; L97.411 Non-pressure chronic ulcer of right heel and midfoot limited to breakdown of skin; L89.620 Pressure ulcer of left heel, unstageable; L97.421 Non-pressure chronic ulcer of left heel and midfoot limited to breakdown of skin; L84 Corns and callosities; E11.40 Type 2 diabetes mellitus with diabetic neuropathy, unspecified; I48.91 Unspecified atrial fibrillation; E11.22 Type 2 diabetes mellitus with diabetic chronic kidney disease; I12.0 Hypertensive chronic kidney disease with stage 5 chronic kidney disease or end stage renal disease; N18.6 End stage renal disease; E78.5 Hyperlipidemia, unspecified; G89.29 Other chronic pain; M54.5 Low back pain; G47.30 Sleep apnea, unspecified; E66.01 Morbid (severe) obesity due to excess calories; F41.9 Anxiety disorder, unspecified; Z68.38 Body mass index [BMI] 38.0-38.9, adult; Z79.4 Long term (current) use of insulin; Z79.82 Long term (current) use of aspirin ==

== ENCOUNTER → 2021-05-06 | Outpatient (CLI) | payer OTHER, BC ==
--- NOTE | 2021-05-06 14:06 | NUR ---
PT ARRIVES PER WHEELCHAIR TO HAVE RT CHEST TICC LINE REMOVED. REMOVED PER DIMPLE VILLAGRAN WITH STERILE TECHNIQUE. SITE DRESSED WITH GAUZE AND TEGADERM. SITE WITHOUT REDNESS OR DRAINAGE OR SIGNS OF INFECTION. PT INSTRUCTED TO KEEP DRESSING CLEAN AND DRY AND INTACT FOR 48 HOURS AND THEN MAY REMOVE AND CLEAN SITE WITH SOAP AND WATER. NO SOAKING IN POOL OF WATER FOR FIVE DAYS UNTIL SITE IS HEALED. PT VERBALIZES UNDERSTANDING OF INST. WHEELED TO EXIT. VSS: TEMP 00.9; HR 64; BP 129/67; SAT 97% ON RA
== END | disposition home or self-care (01) ==
LOC: SPEC 13:40
PROVIDERS: ATTEND Specialist
DX: Z45.2 Encounter for adjustment and management of vascular access device (principal); Z98.890 Other specified postprocedural states; Z79.899 Other long term (current) drug therapy

== ENCOUNTER → 2021-05-13 | Outpatient (CLI) | payer OTHER, BC | LOC: HYPER 09:26 | PROVIDERS: ATTEND Emergency Medicine | DX: E11.621 Type 2 diabetes mellitus with foot ulcer (principal); L89.613 Pressure ulcer of right heel, stage 3; L97.411 Non-pressure chronic ulcer of right heel and midfoot limited to breakdown of skin; L89.620 Pressure ulcer of left heel, unstageable; L97.421 Non-pressure chronic ulcer of left heel and midfoot limited to breakdown of skin; E11.40 Type 2 diabetes mellitus with diabetic neuropathy, unspecified; E11.22 Type 2 diabetes mellitus with diabetic chronic kidney disease; I12.0 Hypertensive chronic kidney disease with stage 5 chronic kidney disease or end stage renal disease; N18.6 End stage renal disease; I48.91 Unspecified atrial fibrillation; E78.5 Hyperlipidemia, unspecified; G89.29 Other chronic pain; M54.5 Low back pain; G47.30 Sleep apnea, unspecified; E66.9 Obesity, unspecified; F41.9 Anxiety disorder, unspecified; Z68.38 Body mass index [BMI] 38.0-38.9, adult; Z79.01 Long term (current) use of anticoagulants; Z79.899 Other long term (current) drug therapy; Z79.4 Long term (current) use of insulin; Z79.82 Long term (current) use of aspirin ==

== ENCOUNTER → 2021-06-30 | Outpatient (CLI) | payer OTHER, BC | LOC: HYPER 07:58 | PROVIDERS: ATTEND Emergency Medicine | DX: E11.621 Type 2 diabetes mellitus with foot ulcer (principal); L97.411 Non-pressure chronic ulcer of right heel and midfoot limited to breakdown of skin; L89.614 Pressure ulcer of right heel, stage 4; L89.620 Pressure ulcer of left heel, unstageable; L97.421 Non-pressure chronic ulcer of left heel and midfoot limited to breakdown of skin; E11.40 Type 2 diabetes mellitus with diabetic neuropathy, unspecified; L84 Corns and callosities; E11.22 Type 2 diabetes mellitus with diabetic chronic kidney disease; I12.0 Hypertensive chronic kidney disease with stage 5 chronic kidney disease or end stage renal disease; N18.6 End stage renal disease; I48.91 Unspecified atrial fibrillation; E78.5 Hyperlipidemia, unspecified; E66.9 Obesity, unspecified; G47.30 Sleep apnea, unspecified; G89.29 Other chronic pain; F41.9 Anxiety disorder, unspecified; Z79.4 Long term (current) use of insulin; Z79.01 Long term (current) use of anticoagulants; Z99.2 Dependence on renal dialysis; M54.50 Low back pain, unspecified; Z68.38 Body mass index [BMI] 38.0-38.9, adult; Z79.899 Other long term (current) drug therapy ==

== ENCOUNTER → 2021-07-14 | Outpatient (CLI) | payer OTHER, BC | LOC: HYPER 09:56 | PROVIDERS: ATTEND Emergency Medicine | DX: E11.621 Type 2 diabetes mellitus with foot ulcer (principal); L97.411 Non-pressure chronic ulcer of right heel and midfoot limited to breakdown of skin; L89.614 Pressure ulcer of right heel, stage 4; L89.620 Pressure ulcer of left heel, unstageable; L97.421 Non-pressure chronic ulcer of left heel and midfoot limited to breakdown of skin; E11.40 Type 2 diabetes mellitus with diabetic neuropathy, unspecified; L84 Corns and callosities; E11.22 Type 2 diabetes mellitus with diabetic chronic kidney disease; I12.0 Hypertensive chronic kidney disease with stage 5 chronic kidney disease or end stage renal disease; N18.6 End stage renal disease; I48.91 Unspecified atrial fibrillation; E78.5 Hyperlipidemia, unspecified; E66.9 Obesity, unspecified; G47.30 Sleep apnea, unspecified; M54.50 Low back pain, unspecified; G89.29 Other chronic pain; F41.9 Anxiety disorder, unspecified; Z79.4 Long term (current) use of insulin; Z79.01 Long term (current) use of anticoagulants; Z99.2 Dependence on renal dialysis; Z68.38 Body mass index [BMI] 38.0-38.9, adult ==

== ENCOUNTER → 2021-07-21 | Outpatient (CLI) | payer OTHER, BC | LOC: HYPER 15:36 | PROVIDERS: ATTEND Emergency Medicine | DX: E11.621 Type 2 diabetes mellitus with foot ulcer (principal); L89.614 Pressure ulcer of right heel, stage 4; L97.411 Non-pressure chronic ulcer of right heel and midfoot limited to breakdown of skin; L89.624 Pressure ulcer of left heel, stage 4; L97.421 Non-pressure chronic ulcer of left heel and midfoot limited to breakdown of skin; L97.511 Non-pressure chronic ulcer of other part of right foot limited to breakdown of skin; E11.22 Type 2 diabetes mellitus with diabetic chronic kidney disease; E11.40 Type 2 diabetes mellitus with diabetic neuropathy, unspecified; I12.0 Hypertensive chronic kidney disease with stage 5 chronic kidney disease or end stage renal disease; N18.6 End stage renal disease; I48.91 Unspecified atrial fibrillation; E78.5 Hyperlipidemia, unspecified; G89.29 Other chronic pain; M54.50 Low back pain, unspecified; G47.30 Sleep apnea, unspecified; E66.9 Obesity, unspecified; F41.9 Anxiety disorder, unspecified; Z79.4 Long term (current) use of insulin; Z79.01 Long term (current) use of anticoagulants; Z79.82 Long term (current) use of aspirin; Z68.38 Body mass index [BMI] 38.0-38.9, adult; Z79.899 Other long term (current) drug therapy ==

== ENCOUNTER → 2021-07-22 | Outpatient (CLI) | payer OTHER, BC | LOC: SJCVCIMAG 08:16 | PROVIDERS: ATTEND Nuclear Medicine Nuclear Cardiology | DX: I70.201 Unspecified atherosclerosis of native arteries of extremities, right leg (principal); I77.9 Disorder of arteries and arterioles, unspecified; I48.91 Unspecified atrial fibrillation; I10 Essential (primary) hypertension; E11.9 Type 2 diabetes mellitus without complications; Z94.0 Kidney transplant status; Z79.899 Other long term (current) drug therapy; Z79.891 Long term (current) use of opiate analgesic ==

== ENCOUNTER → 2021-07-29 | Outpatient (CLI) | payer OTHER, BC ==
[~2021-07-29] MED LIST changes: +MUCINEX600 MG; +ZOFRAN4 MG
== END ==
LOC: HYPER 14:08
PROVIDERS: ATTEND Emergency Medicine
DX: E11.621 Type 2 diabetes mellitus with foot ulcer (principal); L89.614 Pressure ulcer of right heel, stage 4; L97.411 Non-pressure chronic ulcer of right heel and midfoot limited to breakdown of skin; L89.624 Pressure ulcer of left heel, stage 4; L97.421 Non-pressure chronic ulcer of left heel and midfoot limited to breakdown of skin; L97.512 Non-pressure chronic ulcer of other part of right foot with fat layer exposed; L84 Corns and callosities; E11.22 Type 2 diabetes mellitus with diabetic chronic kidney disease; E11.40 Type 2 diabetes mellitus with diabetic neuropathy, unspecified; I12.0 Hypertensive chronic kidney disease with stage 5 chronic kidney disease or end stage renal disease; N18.6 End stage renal disease; I48.91 Unspecified atrial fibrillation; E78.5 Hyperlipidemia, unspecified; G89.29 Other chronic pain; M54.50 Low back pain, unspecified; G47.30 Sleep apnea, unspecified; E66.01 Morbid (severe) obesity due to excess calories; F41.9 Anxiety disorder, unspecified; Z79.4 Long term (current) use of insulin; Z79.01 Long term (current) use of anticoagulants; Z79.82 Long term (current) use of aspirin; Z68.38 Body mass index [BMI] 38.0-38.9, adult

== ENCOUNTER → 2021-07-30 | Outpatient (CLI) | payer OTHER, BC ==
[~2021-07-30] VITALS: Ht 182.9 cm; Wt 122.5 kg
[2021-07-30 07:45] VITALS: BP 115/62
[2021-07-30 07:58] LABS: CALCIUM 8.8 mg/dL (8.5-10.1); CREATININE 1.8 mg/dL (0.7-1.3); POTASSIUM 4.6 mmol/L (3.5-5.1)
[2021-07-30 11:54] VITALS: BP 129/65
[2021-07-30 12:10] VITALS: BP 120/52
[2021-07-30 12:25] VITALS: BP 117/55
== END | disposition home or self-care (01) ==
LOC: CATH 06:49
PROVIDERS: ATTEND Nuclear Medicine Nuclear Cardiology
DX: I70.238 Atherosclerosis of native arteries of right leg with ulceration of other part of lower leg (principal); L97.919 Non-pressure chronic ulcer of unspecified part of right lower leg with unspecified severity; I70.1 Atherosclerosis of renal artery; I25.10 Atherosclerotic heart disease of native coronary artery without angina pectoris; I12.9 Hypertensive chronic kidney disease with stage 1 through stage 4 chronic kidney disease, or unspecified chronic kidney disease; E11.22 Type 2 diabetes mellitus with diabetic chronic kidney disease; N18.4 Chronic kidney disease, stage 4 (severe); I48.91 Unspecified atrial fibrillation; Z98.890 Other specified postprocedural states; Z79.899 Other long term (current) drug therapy; Z79.01 Long term (current) use of anticoagulants; Z79.4 Long term (current) use of insulin

== ENCOUNTER → 2021-08-06 | Outpatient (CLI) | payer OTHER, BC | LOC: HYPER 10:04 | PROVIDERS: ATTEND Emergency Medicine | DX: E11.621 Type 2 diabetes mellitus with foot ulcer (principal); L89.614 Pressure ulcer of right heel, stage 4; L97.412 Non-pressure chronic ulcer of right heel and midfoot with fat layer exposed; L97.422 Non-pressure chronic ulcer of left heel and midfoot with fat layer exposed; L89.623 Pressure ulcer of left heel, stage 3; L97.512 Non-pressure chronic ulcer of other part of right foot with fat layer exposed; E11.40 Type 2 diabetes mellitus with diabetic neuropathy, unspecified; L84 Corns and callosities; I48.91 Unspecified atrial fibrillation; E11.22 Type 2 diabetes mellitus with diabetic chronic kidney disease; I12.0 Hypertensive chronic kidney disease with stage 5 chronic kidney disease or end stage renal disease; F41.9 Anxiety disorder, unspecified; E78.5 Hyperlipidemia, unspecified; E66.9 Obesity, unspecified; N18.6 End stage renal disease; G89.29 Other chronic pain; G47.30 Sleep apnea, unspecified; M54.50 Low back pain, unspecified; Z68.38 Body mass index [BMI] 38.0-38.9, adult; Z79.4 Long term (current) use of insulin; Z79.01 Long term (current) use of anticoagulants; Z79.899 Other long term (current) drug therapy ==

== ENCOUNTER → 2021-08-13 | Outpatient (CLI) | payer OTHER, BC | LOC: HYPER 13:32 | PROVIDERS: ATTEND Emergency Medicine | DX: E11.621 Type 2 diabetes mellitus with foot ulcer (principal); L89.614 Pressure ulcer of right heel, stage 4; L97.412 Non-pressure chronic ulcer of right heel and midfoot with fat layer exposed; L89.624 Pressure ulcer of left heel, stage 4; L97.421 Non-pressure chronic ulcer of left heel and midfoot limited to breakdown of skin; L97.512 Non-pressure chronic ulcer of other part of right foot with fat layer exposed; E11.40 Type 2 diabetes mellitus with diabetic neuropathy, unspecified; L84 Corns and callosities; E11.22 Type 2 diabetes mellitus with diabetic chronic kidney disease; I12.0 Hypertensive chronic kidney disease with stage 5 chronic kidney disease or end stage renal disease; N18.6 End stage renal disease; I48.91 Unspecified atrial fibrillation; E78.5 Hyperlipidemia, unspecified; G89.29 Other chronic pain; M54.50 Low back pain, unspecified; G47.30 Sleep apnea, unspecified; E66.9 Obesity, unspecified; F41.9 Anxiety disorder, unspecified; Z79.4 Long term (current) use of insulin; Z68.38 Body mass index [BMI] 38.0-38.9, adult; Z79.01 Long term (current) use of anticoagulants; Z79.899 Other long term (current) drug therapy ==

== ENCOUNTER → 2021-09-08 | Outpatient (CLI) | payer OTHER, BC | LOC: HYPER 07:47 | PROVIDERS: ATTEND Emergency Medicine | DX: E11.621 Type 2 diabetes mellitus with foot ulcer (principal); L89.614 Pressure ulcer of right heel, stage 4; L89.623 Pressure ulcer of left heel, stage 3; L97.512 Non-pressure chronic ulcer of other part of right foot with fat layer exposed; L97.411 Non-pressure chronic ulcer of right heel and midfoot limited to breakdown of skin; L97.421 Non-pressure chronic ulcer of left heel and midfoot limited to breakdown of skin; E11.40 Type 2 diabetes mellitus with diabetic neuropathy, unspecified; I48.91 Unspecified atrial fibrillation; E11.22 Type 2 diabetes mellitus with diabetic chronic kidney disease; I12.0 Hypertensive chronic kidney disease with stage 5 chronic kidney disease or end stage renal disease; N18.6 End stage renal disease; E78.5 Hyperlipidemia, unspecified; G89.29 Other chronic pain; M54.50 Low back pain, unspecified; G47.30 Sleep apnea, unspecified; F41.9 Anxiety disorder, unspecified; Z79.4 Long term (current) use of insulin; Z79.01 Long term (current) use of anticoagulants; Z79.82 Long term (current) use of aspirin; Z99.2 Dependence on renal dialysis; E66.9 Obesity, unspecified; Z68.38 Body mass index [BMI] 38.0-38.9, adult; Z79.899 Other long term (current) drug therapy ==

== ENCOUNTER → 2021-09-22 | Outpatient (CLI) | payer OTHER, BC | LOC: HYPER 14:34 | PROVIDERS: ATTEND Emergency Medicine | DX: E11.621 Type 2 diabetes mellitus with foot ulcer (principal); L89.614 Pressure ulcer of right heel, stage 4; L97.411 Non-pressure chronic ulcer of right heel and midfoot limited to breakdown of skin; L89.623 Pressure ulcer of left heel, stage 3; L97.421 Non-pressure chronic ulcer of left heel and midfoot limited to breakdown of skin; L97.511 Non-pressure chronic ulcer of other part of right foot limited to breakdown of skin; E11.42 Type 2 diabetes mellitus with diabetic polyneuropathy; L84 Corns and callosities; I48.91 Unspecified atrial fibrillation; E11.22 Type 2 diabetes mellitus with diabetic chronic kidney disease; I12.0 Hypertensive chronic kidney disease with stage 5 chronic kidney disease or end stage renal disease; N18.6 End stage renal disease; E78.5 Hyperlipidemia, unspecified; G89.29 Other chronic pain; M54.50 Low back pain, unspecified; G47.30 Sleep apnea, unspecified; E66.9 Obesity, unspecified; F41.9 Anxiety disorder, unspecified; Z79.899 Other long term (current) drug therapy; Z79.01 Long term (current) use of anticoagulants; Z79.4 Long term (current) use of insulin; Z99.2 Dependence on renal dialysis ==

== ENCOUNTER → 2021-10-06 | Outpatient (CLI) | payer OTHER, BC | LOC: HYPER 13:46 | PROVIDERS: ATTEND Emergency Medicine | DX: E11.621 Type 2 diabetes mellitus with foot ulcer (principal); L89.614 Pressure ulcer of right heel, stage 4; L97.411 Non-pressure chronic ulcer of right heel and midfoot limited to breakdown of skin; L89.623 Pressure ulcer of left heel, stage 3; L97.421 Non-pressure chronic ulcer of left heel and midfoot limited to breakdown of skin; L97.512 Non-pressure chronic ulcer of other part of right foot with fat layer exposed; L84 Corns and callosities; E11.42 Type 2 diabetes mellitus with diabetic polyneuropathy; I48.91 Unspecified atrial fibrillation; E11.22 Type 2 diabetes mellitus with diabetic chronic kidney disease; I12.0 Hypertensive chronic kidney disease with stage 5 chronic kidney disease or end stage renal disease; N18.6 End stage renal disease; E78.5 Hyperlipidemia, unspecified; G89.29 Other chronic pain; M54.50 Low back pain, unspecified; G47.30 Sleep apnea, unspecified; E66.01 Morbid (severe) obesity due to excess calories; F41.9 Anxiety disorder, unspecified; Z79.01 Long term (current) use of anticoagulants; Z79.4 Long term (current) use of insulin; Z99.2 Dependence on renal dialysis; Z79.82 Long term (current) use of aspirin; Z68.38 Body mass index [BMI] 38.0-38.9, adult ==

== ENCOUNTER → 2021-10-27 | Outpatient (CLI) | payer OTHER, BC | LOC: HYPER 14:29 | PROVIDERS: ATTEND Emergency Medicine | DX: E11.621 Type 2 diabetes mellitus with foot ulcer (principal); L89.614 Pressure ulcer of right heel, stage 4; L97.411 Non-pressure chronic ulcer of right heel and midfoot limited to breakdown of skin; L89.623 Pressure ulcer of left heel, stage 3; L97.421 Non-pressure chronic ulcer of left heel and midfoot limited to breakdown of skin; L97.512 Non-pressure chronic ulcer of other part of right foot with fat layer exposed; L84 Corns and callosities; E11.42 Type 2 diabetes mellitus with diabetic polyneuropathy; I48.91 Unspecified atrial fibrillation; E11.22 Type 2 diabetes mellitus with diabetic chronic kidney disease; I12.0 Hypertensive chronic kidney disease with stage 5 chronic kidney disease or end stage renal disease; N18.6 End stage renal disease; E78.5 Hyperlipidemia, unspecified; G89.29 Other chronic pain; M54.50 Low back pain, unspecified; G47.30 Sleep apnea, unspecified; E66.01 Morbid (severe) obesity due to excess calories; F41.9 Anxiety disorder, unspecified; Z79.01 Long term (current) use of anticoagulants; Z79.4 Long term (current) use of insulin; Z99.2 Dependence on renal dialysis; Z79.82 Long term (current) use of aspirin; Z68.38 Body mass index [BMI] 38.0-38.9, adult ==

== ENCOUNTER → 2021-11-03 | Outpatient (CLI) | payer OTHER, BC | LOC: HYPER 09:13 | PROVIDERS: ATTEND Emergency Medicine | DX: E11.621 Type 2 diabetes mellitus with foot ulcer (principal); L89.614 Pressure ulcer of right heel, stage 4; L97.411 Non-pressure chronic ulcer of right heel and midfoot limited to breakdown of skin; L89.624 Pressure ulcer of left heel, stage 4; L97.421 Non-pressure chronic ulcer of left heel and midfoot limited to breakdown of skin; L97.512 Non-pressure chronic ulcer of other part of right foot with fat layer exposed; L84 Corns and callosities; E11.42 Type 2 diabetes mellitus with diabetic polyneuropathy; I48.91 Unspecified atrial fibrillation; E11.22 Type 2 diabetes mellitus with diabetic chronic kidney disease; I12.0 Hypertensive chronic kidney disease with stage 5 chronic kidney disease or end stage renal disease; N18.6 End stage renal disease; E78.5 Hyperlipidemia, unspecified; G89.29 Other chronic pain; M54.50 Low back pain, unspecified; G47.30 Sleep apnea, unspecified; E66.01 Morbid (severe) obesity due to excess calories; F41.9 Anxiety disorder, unspecified; Z79.01 Long term (current) use of anticoagulants; Z79.4 Long term (current) use of insulin; Z99.2 Dependence on renal dialysis; Z79.82 Long term (current) use of aspirin; Z68.38 Body mass index [BMI] 38.0-38.9, adult ==

== ENCOUNTER → 2021-11-18 | Outpatient (CLI) | payer OTHER, BC | LOC: HYPER 07:48 | PROVIDERS: ATTEND Emergency Medicine | DX: E11.621 Type 2 diabetes mellitus with foot ulcer (principal); L89.614 Pressure ulcer of right heel, stage 4; L97.411 Non-pressure chronic ulcer of right heel and midfoot limited to breakdown of skin; L89.624 Pressure ulcer of left heel, stage 4; L97.421 Non-pressure chronic ulcer of left heel and midfoot limited to breakdown of skin; L97.512 Non-pressure chronic ulcer of other part of right foot with fat layer exposed; L84 Corns and callosities; E11.42 Type 2 diabetes mellitus with diabetic polyneuropathy; E11.22 Type 2 diabetes mellitus with diabetic chronic kidney disease; I12.0 Hypertensive chronic kidney disease with stage 5 chronic kidney disease or end stage renal disease; N18.6 End stage renal disease; E78.5 Hyperlipidemia, unspecified; G89.29 Other chronic pain; G47.30 Sleep apnea, unspecified; E66.01 Morbid (severe) obesity due to excess calories; I48.91 Unspecified atrial fibrillation; M54.50 Low back pain, unspecified; F41.9 Anxiety disorder, unspecified; Z79.01 Long term (current) use of anticoagulants; Z79.4 Long term (current) use of insulin; Z99.2 Dependence on renal dialysis; Z79.82 Long term (current) use of aspirin; Z68.38 Body mass index [BMI] 38.0-38.9, adult ==